=== PATIENT | male | born 1955 | race African-American/Black ===

== ENCOUNTER → 2017-04-23 | Day surgery (SDC) | payer BC | END | disposition home or self-care (01) | LOC: JRADIR 12:30 | PROVIDERS: ATTEND Nurse Practitioner Acute Care | PROC: 02HV33Z Insertion of Infusion Device into Superior Vena Cava, Percutaneous Approach (ICD-10-PCS; principal; 2017-04-23) | PROC: B518ZZA Fluoroscopy of Superior Vena Cava, Guidance (ICD-10-PCS; 2017-04-23) | DX: Z79.2 Long term (current) use of antibiotics (principal) | CPT/HCPCS: 36569; 77001-TC; C1751 ==